=== PATIENT | male | born 1970 | race American Indian/Alaskan Native ===

== ENCOUNTER 2018-03-06 19:30 | Inpatient (IN) | payer MEDICAID ==
[2018-03-06 19:30] VITALS: BMI 26.9
[2018-03-06 19:58] LABS: BASO # 0.1 K/uL (0.0-0.2); BASO % 0.7 % (0.0-2.0); EOS # 0.2 K/uL (0.0-0.7); EOS % 2.3 % (0.0-4.0); HEMOGLOBIN 11.2 g/dL (12.0-18.0); LYMPH # 3.4 K/uL (1.0-4.3); LYMPH % 35.2 % (20.0-40.0); MEAN CORPUSCULAR HEMOGLOBIN 27.6 pg (27.0-31.0); MEAN CORPUSCULAR HGB CONC 32.5 g/dL (33.0-37.0); MEAN PLATELET VOLUME 7.1 fL (7.2-11.7); MONO # 0.8 K/uL (0.0-0.8); NEUT # 5.2 K/uL (1.8-7.0); NEUT % 53.8 % (50.0-75.0); RBC 4.05 Mil/uL (4.40-5.90); RED CELL DISTRIBUTION WIDTH 14.1 % (11.5-14.5); WHITE BLOOD COUNT 9.7 K/uL (4.8-10.8)
--- NOTE | 2018-03-06 20:03 | C.PDOC ---
History Of Present Illness 47 year old male presents to the emergency department as a pre-screen for detox from heroin, alcohol, and xanax. Patient states that he last used alcohol and heroin today, and he last used Xanax on Thursday03-02-18. Time Seen by Provider: 03/06/18 19:48 Chief Complaint (Nursing): Substance Abuse History Per: Patient History/Exam Limitations: no limitations Onset/Duration Of Symptoms: Hrs Current Symptoms Are (Timing): Still Present Suicide/Self Injury Attempted (Context): None Modifying Factor(s): Alcohol, Other (Heroin, Xanax) Associated Symptoms: denies: Suicidal Thoughts, Suicidal Plan Past Medical History Reviewed: Historical Data, Nursing Documentation, Vital Signs Vital Signs: Last Vital Signs Temp 98.6 F 03/06/18 19:37 Pulse 84 03/06/18 19:37 Resp 20 03/06/18 19:37 BP 126/74 03/06/18 19:37 Pulse Ox 98 03/06/18 19:37 - Medical History PMH: Anxiety, Asthma, Depression Denies: Diabetes, Hepatitis, HIV, HTN, Parkinson's Disease, Chronic Kidney Disease, Seizures, Sexually Transmitted Disease Surgical History: No Surg Hx - [facility] DETOXIFICATION SERVICES FOR SUBSTANCE ABUSE TREATMENT (07/25/16) INDIVIDUAL PSYCHOTHERAPY, SUPPORTIVE (07/25/16) Family History: States: No Known Family Hx - Social History Hx Tobacco Use: No Hx Alcohol Use: Yes (beer) Hx Substance Use: Yes (heroin) - Immunization History Hx Tetanus Toxoid Vaccination: No Hx Influenza Vaccination: No Hx Pneumococcal Vaccination: No Review Of Systems Except As Marked, All Systems Reviewed And Found Negative. Constitutional: Negative for: Fever, Chills Cardiovascular: Negative for: Chest Pain Respiratory: Negative for: Shortness of Breath Psych: Negative for: Suicidal ideation Physical Exam - Physical Exam Additional Physical Exam Comments: Constitutional: No acute distress. Head: Normocephalic. Atraumatic. Eyes: PERRL. ENT: Moist mucous membranes. Neck: Supple. Cardiovascular: Regular rate. Radial pulse 2+ bilaterally. Chest: No tenderness. Respiratory: Clear to auscultation bilaterally. GI: Soft. Nontender. Nondistended. Back: No CVA tenderness. Musculoskeletal: No tenderness or swelling of extremities. Skin: No rash. Neurologic: Alert, no focal deficit. ED Course And Treatment - Laboratory Results Result Diagrams: 03/06/18 19:55 03/06/18 19:55 O2 Sat by Pulse Oximetry: 98 (RA) Pulse Ox Interpretation: Normal Medical Decision Making Medical Decision Making: Plan: Alcohol Serum CMP Drug Screen Magnesium Phosphorus CBC Urinalysis Disposition - Disposition Disposition: HOSPITALIZED Disposition Time: 20:57 Condition: FAIR Forms: [facility] (Sami) - Clinical Impression Clinical Impression: Opioid use disorder, severe, dependence - Scribe Statement The provider has reviewed the documentation as recorded by the Scribe (Jonathan Barakat) Provider Attestation: All medical record entries made by the Scribe were at my direction and personally dictated by me. I have reviewed the chart and agree that the record accurately reflects my personal performance of the history, physical exam, medical decision making, and the department course for this patient. I have also personally directed, reviewed, and agree with the discharge instructions and disposition.
[2018-03-06 20:10] LABS: ALB/GLOB RATIO 1.6 (1.0-2.1); ALBUMIN 4.5 g/dL (3.5-5.0); ALT/SGPT 29 U/L (21-72); AST/SGOT 33 U/L (17-59); BLOOD UREA NITROGEN 22 mg/dL (9-20); CALCIUM 9.1 mg/dl (8.6-10.4); GFR NON-AFRICAN AMERICAN > 60
[2018-03-06 20:23] LABS: URINE BACTERIA RARE (<OCC); URINE BILIRUBIN NEGATIVE (NEGATIVE); URINE CLARITY Clear (Clear); URINE COLOR Colorless (YELLOW); URINE GLUCOSE (UA) NORMAL (Normal); URINE LEUKOCYTE ESTERASE NEG Leu/uL (Negative); URINE PROTEIN NEGATIVE (NEGATIVE); URINE UROBILINOGEN NORMAL mg/dL (0.2-1.0)
[2018-03-06 20:29] LABS: URINE BLOOD NEGATIVE (NEGATIVE)
[2018-03-06 20:35] LABS: BARBITURATES, UR NEGATIVE (NEGATIVE); BENZODIAZEPINES, UR NEGATIVE (NEGATIVE); PHENCYCLIDINE, UR NEGATIVE (NEGATIVE)
[2018-03-06 20:36] LABS: OPIATES, UR POSITIVE (NEGATIVE)
--- NOTE | 2018-03-06 21:14 | PCM.BM ---
<Marialuisa Unger - Last Filed: 03/06/18 21:13> Treatment Plan Problems - Problems identified on initial assessmt Potential for opiate withdrawal Date Initiated: 03/06/18 Time Initiated: 21:14 Assessment reference: NA Status: Active Treatment assets and liabiliti Patient Assests: ADL independent, negotiates basic needs, cognitively intact Patient Liabilities: substance abuse (heroin,), medical problems (asthma) - Milieu Protocol Maintain good personal hygiene: daily Encourage regular showers, daily Remind patient to perform daily oral care, daily Assist patient to perform ADL's Conduct patient checks and document Observation sheet: Q15 minutes Maintain personal safety: every shift Educate patient to report safety concerns to staff, every shift Monitor environment for contraband/sharps Medication safety: Monitor for expected outcome, potential side effects: every shift, Assess barriers to learning: every shift, Assess readiness for medication education: every shift <Cate Gomez - Last Filed: 03/08/18 08:43> - Diagnosis (1) Opioid use disorder, severe, dependence Status: Acute Interventions: 03/08/18 08:44 * Assess 7x/week regarding severity of withdrawal * Educate regarding risks, benefits, side effects and alternatives of medications * Use Motivational Interviewing for abstinence * Use CBT for relapse prevention * Medication management for withdrawal symptoms * Encourage medication assisted treatment * <Mary Kay Naranjo - Last Filed: 03/09/18 12:29> Family Contact Family involvement: Famliy/SO not involved - Goals for Treatment Patient goals for treatment: Complete detox protocol and transition to IOP and possibly grief counseling. Discharge/Continuing Care - Education Needs Education Needs: Patient Medication, Patient Diagnosis/Disease Process, Patient Coping Skills, Patient Anger Management skills, Patient Placement options, Patient Community resources - Discharge Discharge Criteria: No longer exhibiting s/s of withdrawal, Reduction of target symptoms Discharge to:: Home, With Family - Treatment Team Participation Patient/Family/SO Statement: 03/09/18 12:28 "I wanna wipe the slate clean and start again. "I don't know about grief therapy but I'll think about it." Discussed with Family/SO: No Was Patient/Family/SO present at Treatment Team Meeting: Yes
[2018-03-06] MEDS ORDERED: Albuterol HFA 90 mcg/actuation (8 g) INH PRN (22:21)
[2018-03-07] MEDS: Fluticasone-Vilanterol 200/25mcg Diskus INH SCH (08:24)
[2018-03-07] MEDS ORDERED: Aluminum Hydroxide/Magnesium Hydroxide Susp (30 mL) PO PRN (12:11)
[2018-03-07] MEDS: Multiple Vitamins Tab PO SCH (13:05)
--- NOTE | 2018-03-07 16:43 | PCM.PSYCH ---
Initial Psychiatric Evaluation - Initial Psychiatric Evaluation Type of Admission: Voluntary Legal Status: Capacity Chief Complaint (in patient's own words): I need help for my substance use. History of Present Illness and Precipitating Events: Patient is a 47 years old, single, employed, -[place] male with no previous psychiatric history was admitted due to withdrawing from heroin, alcohol, cocaine and Xanax. Opioid: Patient started using heroin at 33 years of age, was using 11 bags of heroin daily, sniffing. Last used yesterday. History of 2 detox and one rehabilitation in the past. Alcohol: Started using alcohol at 17 years of age, increased gradually. Currently he was drinking 6 packs of beer and half pint of vodka daily. Last use reported 2 days ago. Xanax: Started at 21 years of age. He is using once take age of 2 mg every third day. Last used 4 days ago. Cocaine: Started at 23 years of age. Using $24 of cocaine daily, last used 2 days ago. Denied smoking cigarettes. Patient was born in [place], has GED. 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 Never and has no children. Lives with girlfriend. His height is 5 feet 9 inches and weight is 180 pounds. Patient wants to go to IOP for follow-up care after discharge from the hospital. Patient will get help from the social sciences instructor find proper IOP for him. Current Medications: Active Medications Generic Name Dose Route Start Last Admin Trade Name Freq PRN Reason Stop Dose Admin Al Hydrox/Mg Hydrox/Simethicone 30 ml 03/07/18 12:11 Maalox 30 Ml PO TID PRN Indigestion / Heartburn Albuterol 1 puff 03/06/18 22:21 Ventolin Hfa 90 Mcg/Actuation (8 G) INH Q6H PRN Shortness of Breath Chlordiazepoxide 25 mg 03/07/18 12:15 Librium PO Q4H PRN Alcohol Withdrawal Clonidine HCl 0.1 mg 03/07/18 12:11 03/07/18 13:04 Catapres PO 0.1 mg Q8 PRN Administration COWS Score More or Equal to 5 Dicyclomine HCl 20 mg 03/07/18 12:13 Bentyl PO Q6 PRN Abdominal Cramps Fluticasone/Vilanterol 1 puff 03/07/18 08:00 03/07/18 08:24 Breo Ellipta 200-25 Mcg Inh INH 1 puff RQ24 INA Administration Folic Acid 1 mg 03/07/18 12:30 03/07/18 13:05 Folic Acid PO 1 mg DAILY INA Administration Gabapentin 400 mg 03/07/18 14:00 03/07/18 13:04 Neurontin PO 400 mg TID INA Administration Ibuprofen 400 mg 03/07/18 12:21 Motrin Tab PO Q6 PRN Pain, moderate (4-7) Ibuprofen 600 mg 03/07/18 14:15 Motrin Tab PO Q6 PRN Pain, severe (8-10) Loperamide HCl 2 mg 03/07/18 12:11 Imodium PO Q8 PRN Diarrhea Methadone HCl 15 mg 03/08/18 10:00 Methadone PO 03/11/18 09:59 Q24H INA Taper Multivitamins 1 tab 03/07/18 12:30 03/07/18 13:05 Hexavitamin PO 1 tab DAILY INA Administration Ondansetron HCl 4 mg 03/07/18 12:11 Zofran Tab PO Q8 PRN Nausea/Vomiting Thiamine HCl 100 mg 03/07/18 12:30 03/07/18 13:04 Vitamin B1 Tab PO 100 mg DAILY INA Administration Trazodone HCl 50 mg 03/06/18 22:00 03/06/18 22:13 Desyrel PO 50 mg HS INA Administration Past Psychiatric History - Past Psychiatric History Previous Treatment History: Inpatient History of Abuse: None reported History of ETOH/Drug Use: See HPI History of Family Illness: Reported history of alcohol use in his mother and cannabis use in his father. Pertinent Medical Hx (Current Medical&Sleep Prob, Allergies): Allergies Allergy/AdvReac Type Severity Reaction Status Date / Time No Known Allergies Allergy Verified 03/06/18 19:43 Albuterol HFA [Ventolin HFA 90 mcg/actuation (8 g)] 0.09 mg IH PRN PRN 07/25/16 RX: Albuterol HFA [Ventolin HFA 90 mcg/actuation (8 g)] 1 puff INH RQ4 PRN #1 inhaler 07/30/16 Asthma Hypertension Review of Systems - Psychiatric Psychiatric: As Per HPI, Anxiety Mental Status Examination - Personal Presentation Personal Presentation: Looks stated age - Affect Affect: Other (Appropriate) - Motor Activity Motor Activity: Calm - Reliability in Providing Information Reliability in Providing Information: Fair - Speech Speech: Organized - Mood Mood: Anxious - Formal Thought Process Formal Thought Process: No Impairment - Hallucinations/Delusions Hallucinations: Other (None reported) Delusions: Other - Obsessions/Compulsions Obsessions: None Compulsions: None - Cognitive Functions Orientation: Person, Place, Situation, Time Sensorium: Alert Attention/Concentration: Attentive Abstract Thinking: [place] Estimate of Intelligence: Average Judgement: Intact, as evidence by: Insight regarding need for hospitalization Memory: Recent intact, as evidence by: Ability to recall events of the day, Remote intact, as evidenced by: Ability to recall historical events - Risk Risk: Withdrawal, Diminished functioning - Strength & Assets Inventory Strength & Assets Inventory: Cooperative - Limitations Limitations: Other (Lives with girlfriend) DSM 5 DX - DSM 5 DSM 5 Diagnosis: Opiate use disorder severe Opiate withdrawal Alcohol use disorder severe Alcohol withdrawal Anxiolytics use disorder mild Cocaine use disorder moderate - Recommended/Plan of Treatment Treatment Recommendations and Plan of Treatment: Patient/staff education. Supportive therapy. CBT for relapse prevention. SD for abstinence. We'll start methadone 10 per for opiate withdrawal symptoms and Librium for alcohol and Xanax withdrawal symptoms. Other when necessary medications. Patient wants to go to [facility] for follow-up care after discharge from the hospital. Projected ELOS: 4-5 days - Smoking Cessation Smoking Cessation Initiated: No Reason for not providing: Patient doesn't smoke cigarettes
[2018-03-08] MEDS: Fluticasone-Vilanterol 200/25mcg Diskus INH SCH (08:42)
--- NOTE | 2018-03-08 08:43 | PCM.PYCHPN ---
Psychiatric Progress Note - Psychiatric Progress Note Patient seen today, length of contact: 16 min Patient Chief Complaint: "Not doing OK" Problems Identified/Issues Discussed: The pt is seen, chart reviewed, case discussed with staff. The pt is compliant with medications and reports no side-effects. Symptoms are improving but needs more time to stabilize. Pt attends groups and activities. Support given, psycho-education provided. After care discussed. Medication Change: Yes (detox changes daily) Medical Record Reviewed: Yes Mental Status Examination - Cognitive Function Orientation: Person, Place, Situation, Time Memory: Intact Attention: WNL Concentration: Poor Association: WNL Fund of Knowledge: WNL - Mood Mood: Anxious - Affect Affect: Constricted - Speech Speech: Appropriate - Formal Thought Process Formal Thought Process: No Impairment - Suicidal Ideation Suicidal Ideation: No - Homicidal Ideation Homicidal Ideation: No Goal/Treatment Plan - Goal/Treatment Plan Need for Continued Stay: Discharge may exacerbated symptoms, Severe functional impairment Progress Toward Problem(s) and Goals/Treatment Plan: Continue medications Support and psychoeducation daily Attend groups and activities daily After care planning by counselors [place] and CBT MAT, rehab or IOP
[2018-03-08] MEDS: Multiple Vitamins Tab PO SCH (09:14)
[2018-03-09] MEDS: Fluticasone-Vilanterol 200/25mcg Diskus INH SCH (07:57)
[2018-03-09 09:17] VITALS: RESP 18
[2018-03-09] MEDS: Multiple Vitamins Tab PO SCH (09:25)
[2018-03-09] MEDS ORDERED: Influenza Vaccine 60 MCG/0.5 ML SYR (3 yr & up) IM ONE (10:00)
[2018-03-09] MEDS ORDERED: Magnesium Hydroxide Susp 30 ml UD PO ONE (10:40)
--- NOTE | 2018-03-09 13:44 | PCM.PYCHPN ---
Psychiatric Progress Note - Psychiatric Progress Note Patient seen today, length of contact: 16 min Patient Chief Complaint: "Still joann bad, shaky" Problems Identified/Issues Discussed: The pt is seen, chart reviewed, case discussed with staff. Support and psychoeducation given, CBT and [place] used briefly No new symptoms reported, improving slowly and needs more time Dose adjusted, still withdrawing, shaky, high risk for relapse No SEs from medications, risks discussed. After care discussed Medication Change: Yes (detox changes daily) Medical Record Reviewed: Yes Mental Status Examination - Cognitive Function Orientation: Person, Place, Situation, Time Memory: Intact Attention: WNL Concentration: Poor Association: WNL Fund of Knowledge: WNL - Mood Mood: Anxious - Affect Affect: Constricted - Speech Speech: Appropriate - Formal Thought Process Formal Thought Process: No Impairment - Suicidal Ideation Suicidal Ideation: No - Homicidal Ideation Homicidal Ideation: No Goal/Treatment Plan - Goal/Treatment Plan Need for Continued Stay: Discharge may exacerbated symptoms, Severe functional impairment Progress Toward Problem(s) and Goals/Treatment Plan: Continue medications, doses adjusted Support and psychoeducation daily Attend groups and activities daily After care planning by counselors [place] and CBT MAT, rehab or IOP Estimated Date of D/C: 03/11/18
[2018-03-09] MEDS: Pantoprazole 40 mg EC Tab PO SCH (14:50)
[2018-03-09 20:29] VITALS: O2SAT 97
[2018-03-10] MEDS: Fluticasone-Vilanterol 200/25mcg Diskus INH SCH (08:02)
--- NOTE | 2018-03-10 08:52 | PCM.PYCHDC ---
Mental Status Examination - Mental Status Examination Orientation: Person, Place, Situation, Time Memory: Intact Mood: Anxious Affect: Broad Speech: Appropriate Attention: WNL Concentration: WNL Association: WNL Fund of Knowledge: WNL Formal Thought Process: No Impairment Suicidal Ideation: No Current Homicidal Ideation?: No Discharge Summary - Discharge Note Reason for Hospitalization: Alcohol and opioid detox Consultations:: List each consultation separately and include: 1. Reason for request. 2. Findings. 3. Follow-up Summary of Hospital Course include:: 1. Description of specific treatment plan utilized for patients during their course of treatmen. 2. Summarize the time- course for resolution of acute symptoms and/or regressed behaviors. 3. Describe issues identified and worked on during hospitalization. 4. Describe medication utilized. 5. Describe medical problems identified and treated. 6. Reassessment of suicide risk Summary of Hospital Course: Hospital course: The pt was admitted and started on treatment with psychotherapy, support, psychoeducation and medications. MS and CBT used. The pt attended groups and activities, as well as milieu therapy. All the risks and benefits of medications are discussed and the patient understood and agreed. The pt improved with the treatments provided. After care discussed with the patient. 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 Follow after care plan as discussed. Use relapse prevention skills Return to ER or call 911 if suicidal, homicidal or symptoms relapse. Stay away from stress, alcohol and drugs. See primary doctor regularly and get labs. Prescriptions/Medication Reconciliation: Albuterol HFA [Ventolin HFA 90 mcg/actuation (8 g)] 1 puff INH Q6H PRN #1 inhaler PRN Reason: Shortness Of Breath Fluticasone/Vilanterol 200/25 [Breo Ellipta 200-25 Mcg INH] 1 puff INH RQ24 #1 puff Gabapentin [Neurontin] 400 mg PO TID #90 cap Pantoprazole [Protonix EC Tab] 40 mg PO DAILY #30 ect traZODone [Desyrel] 50 mg PO HS #30 tab
[2018-03-10] MEDS: Multiple Vitamins Tab PO SCH (09:07)
[2018-03-10] MEDS: Pantoprazole 40 mg EC Tab PO SCH (09:07)
[2018-03-10 11:00] VITALS: BP 132/86; PULSE 97; TEMP 98.4
== END 2018-03-10 09:30 | disposition home or self-care (01) | DRG 773 ==
LOC: C.ER 19:30 → C.7D 20:59
PROC: GZHZZZZ Group Psychotherapy (ICD-10-PCS; principal; 2018-03-06)
PROC: GZ56ZZZ Individual Psychotherapy, Supportive (ICD-10-PCS; 2018-03-06)
DX: F11.23 Opioid dependence with withdrawal (principal); F10.230 Alcohol dependence with withdrawal, uncomplicated; Y90.6 Blood alcohol level of 120-199 mg/100 ml; F14.10 Cocaine abuse, uncomplicated; J45.909 Unspecified asthma, uncomplicated